=== PATIENT | male | born 1980 | race Caucasian/White ===

== ENCOUNTER 2017-12-24 18:31 | Emergency (ER) | payer SELFPAY ==
[~2017-12-24] VITALS: Ht 175.3 cm; Wt 77.6 kg
[2017-12-24 18:59] VITALS: BP 124/74
--- NOTE | 2017-12-24 19:20 | NUR ---
PT AMB TO ER BED 12
--- NOTE | 2017-12-24 19:56 | NUR ---
PT HAS SOB X1 DAY, HX ASTHMA, PT STATES HE DOES NOT HAVE INSURANCE AT THIS TIME AND DOES NOT HAVE A INHALER. PT HAS PRODUCTIVE COUGH X3 DAYS. INSPIRATORY WHEEZES TO RT UPPER AND MIDDLE LOBES. RR EVEN AND UNLABORED. PT [id number] SITTING IN BED.
[2017-12-24] MEDS ORDERED: methylPREDNISolone SS 125 MG in WATER STERILE 2 ML IM ONE (20:00)
[2017-12-24] MEDS ORDERED: ALBUTEROL 0.083% 2.5 MG/3 ML NEBU INH ONE (20:00)
[2017-12-24 21:20] VITALS: BP 120/70
--- NOTE | 2017-12-24 21:22 | NUR ---
Patient discharged with v/s stable. Written and verbal after care instructions given and explained. Patient alert, oriented and verbalized understanding of instructions. Ambulatory with steady gait. All questions addressed prior to discharge. ID band removed. Patient advised to follow up with PMD. Rx of PREDNISONE, ALBUTEROL given. Patient educated on indication of medication including possible reaction and side effects. Opportunity to ask questions provided and answered.
== END 2017-12-24 21:20 | disposition home or self-care (01) ==
LOC: MED 18:31
DX: J45.901 Unspecified asthma with (acute) exacerbation (principal); R03.0 Elevated blood-pressure reading, without diagnosis of hypertension
CPT/HCPCS: 36415; 71045; 87804; 96372; 99285; J2930; J7613; Q0092